=== PATIENT | female | born 1980 | race African-American/Black ===

== ENCOUNTER 2024-02-09 15:25 | Inpatient (IN) | payer MEDICAID ==
[~2024-02-09] VITALS: Ht 154.9 cm; Wt 76.7 kg
[~2024-02-09 15:25] MED LIST: AMOX1TAB16 MT; DOXY150T8 PO; SULF1TAB48 MT
[2024-02-09] MEDS: AMOXICILLIN/POTASSIUM CLAVULANATE 875/125MG TAB PO ONE (22:05)
[2024-02-09] MEDS: DOXYCYCLINE HYCLATE 100MG CAPSULE PO ONE (22:05)
[2024-02-10] MEDS: ACETAMINOPHEN 325MG TABLET PO ONE (00:15)
[2024-02-10 05:42] LABS: CHLORIDE 107 mEq/L (98-107); POTASSIUM 3.8 mEq/L (3.5-5.1); SODIUM 140 mEq/L (136-145)
[2024-02-10 05:43] LABS: CALCIUM 8.4 mg/dL (8.7-10.4); CARBON DIOXIDE 29 mEq/L (21-32)
[2024-02-10 05:48] LABS: CREATININE 0.6 mg/dL (0.6-1.0); GLUCOSE 82 mg/dL (70-105); UREA NITROGEN BLOOD 8 mg/dL (9-23)
[2024-02-10 06:52] LABS: EOSINOPHILS % 5.8 % (0.0-5.0); HEMOGLOBIN. 8.9 g/dL (12.0-16.0); MEAN CORPUSCULAR HEMOGLOBIN 22.8 pg (28.0-32.0); MEAN CORPUSCULAR HGB CONC 30.8 g/dL (31.0-37.0); MEAN CORPUSCULAR VOLUME 74.1 fL (81.0-99.0); MEAN PLATELET VOLUME 7.4 fl (7.4-10.4); MONOCYTES % 9.6 % (2.0-8.0); NEUTROPHILS % 65.6 % (40.0-76.0); PLATELET 404 x1000/uL (130-400); RED BLOOD CELL COUNT 3.91 mill/uL (4.2-5.4); RED CELL DISTRIBUTION WIDTH 28.4 % (11.6-14.6); WHITE BLOOD COUNT 5.5 x1000/uL (4.5-11.0)
[2024-02-10] MEDS: HYDRALAZINE 20MG/ML VIAL IV ONE (07:13)
[2024-02-10 07:19] LABS: DIFFERENTIAL COMMENT 1
[2024-02-10] MEDS ORDERED: ACETAMINOPHEN 325MG TABLET PO PRN (10:45)
[2024-02-10] MEDS ORDERED: DOCUSATE SODIUM 100MG CAPSULE PO PRN (10:45)
[2024-02-10] MEDS ORDERED: IPRATROPIUM/ALBUTEROL 0.5-3(2.5)MG/3ML NEB HHN PRN (10:45)
[2024-02-10] MEDS: ENOXAPARIN 40MG/0.4ML SYR SUBCUT SCH (11:15)
[2024-02-10 11:54] VITALS: BP 146/81; PULSE 94; RESP 17; TEMP 36.7516
[2024-02-10] MEDS ORDERED: CEFAZOLIN 2GM/100ML 100 ML IV SCH (12:00)
[2024-02-10] MEDS: FERROUS SULFATE 325MG TABLET PO SCH (13:05)
[2024-02-10] MEDS: ACETAMINOPHEN 325MG TABLET PO PRN (13:05)
[2024-02-10] MEDS: ONDANSETRON HCL 4MG/2ML INJ IV PRN (13:12)
[2024-02-10] MEDS: CEFAZOLIN 2000MG PREMIX 50 ML IV SCH (15:04)
[2024-02-10 20:00] VITALS: BP 137/76; PULSE 94; RESP 20; TEMP 37.11408; O2SAT 99
[2024-02-11] VITALS: BP 134/69; PULSE 81; RESP 20; TEMP 35.78064; O2SAT 100
[2024-02-11] MEDS: KETOROLAC 15MG/ML VIAL IV PRN (00:58)
[2024-02-11] MEDS: MELATONIN 3MG TABLET PO NR (00:58)
[2024-02-11 08:00] VITALS: BP 146/80; PULSE 85; RESP 19; TEMP 36.50292; O2SAT 99
[2024-02-11] MEDS: ASCORBIC ACID 500 MG TABLET PO SCH (09:30)
[2024-02-11] MEDS: FOLIC ACID 1MG TABLET PO SCH (09:30)
[2024-02-11] MEDS: PANTOPRAZOLE SODIUM 40 MG/VIAL IV SCH (09:31)
[2024-02-11 12:00] VITALS: BP 131/70; PULSE 80; RESP 19; TEMP 36.3918; O2SAT 99
[2024-02-11 16:00] VITALS: BP 126/64; PULSE 82; RESP 19; TEMP 36.50292; O2SAT 99
[2024-02-11 18:59] LABS: CHLORIDE 105 mEq/L (98-107); SODIUM 138 mEq/L (136-145)
[2024-02-11 19:00] LABS: CALCIUM 8.1 mg/dL (8.7-10.4); CARBON DIOXIDE 27 mEq/L (21-32)
[2024-02-11 19:05] LABS: CREATININE 0.6 mg/dL (0.6-1.0); GLUCOSE 102 mg/dL (70-105); UREA NITROGEN BLOOD 10 mg/dL (9-23)
[2024-02-11 19:15] LABS: EOSINOPHILS % 7.8 % (0.0-5.0); HEMATOCRIT. 29.2 % (36.0-48.0); LYMPHOCYTES % 17.2 % (20.0-50.0); MEAN CORPUSCULAR HGB CONC 30.8 g/dL (31.0-37.0); MEAN CORPUSCULAR VOLUME 74.9 fL (81.0-99.0); MEAN PLATELET VOLUME 7.6 fl (7.4-10.4); MONOCYTES % 7.4 % (2.0-8.0); NEUTROPHILS % 66.6 % (40.0-76.0); PLATELET 312 x1000/uL (130-400); RED CELL DISTRIBUTION WIDTH 27.5 % (11.6-14.6)
[2024-02-11 19:20] LABS: DIFFERENTIAL COMMENT 1
[2024-02-11 20:00] VITALS: BP 144/87; PULSE 95; RESP 20; TEMP 35.78064; O2SAT 99
[2024-02-12] VITALS: BP 152/92; PULSE 87; RESP 20; TEMP 36.50292; O2SAT 100
[2024-02-12 08:00] VITALS: BP 160/92; PULSE 101; RESP 19; TEMP 36.72516; O2SAT 95
[2024-02-12 12:00] VITALS: BP 152/94; PULSE 78; RESP 18; TEMP 36.61404; O2SAT 97
[2024-02-12] MEDS: AMLODIPINE 5MG TABLET PO SCH (12:45)
[2024-02-12 16:00] VITALS: BP 148/87; PULSE 90; RESP 19; TEMP 36.50292; O2SAT 98
[2024-02-12] MEDS: AMMONIUM LACTATE 12% LOTION 240ML TOP SCH (20:49)
[2024-02-13] VITALS: BP 152/90; PULSE 80; RESP 18; TEMP 36.72516; O2SAT 99
[2024-02-13 08:00] VITALS: BP_SYST 200
[2024-02-13 10:33] LABS: HEMATOCRIT 30.5 % (36.0-48.0); HEMOGLOBIN 9.4 g/dL (12.0-16.0); MEAN CORPUSCULAR HEMOGLOBIN 23.2 pg (28.0-32.0); MEAN CORPUSCULAR HGB CONC 30.8 g/dL (31.0-37.0); MEAN CORPUSCULAR VOLUME 75.2 fL (81.0-99.0); PLATELET 261 x1000/uL (130-400); RED BLOOD CELL COUNT 4.05 mill/uL (4.2-5.4); RED CELL DISTRIBUTION WIDTH 27.8 % (11.6-14.6); WHITE BLOOD COUNT 6.3 x1000/uL (4.5-11.0)
[2024-02-13 10:38] LABS: CHLORIDE 103 mEq/L (98-107); POTASSIUM 3.8 mEq/L (3.5-5.1); SODIUM 137 mEq/L (136-145)
[2024-02-13 10:39] LABS: CARBON DIOXIDE 28 mEq/L (21-32)
[2024-02-13 10:40] LABS: CALCIUM 8.3 mg/dL (8.7-10.4)
[2024-02-13 10:44] LABS: CREATININE 0.6 mg/dL (0.6-1.0); GLUCOSE 98 mg/dL (70-105)
[2024-02-13 10:45] LABS: UREA NITROGEN BLOOD 8 mg/dL (9-23)
[2024-02-13 12:00] VITALS: BP 138/79; PULSE 82; RESP 18; TEMP 36.72516; O2SAT 99
[2024-02-13 16:00] VITALS: BP 140/75; PULSE 76; RESP 18; TEMP 36.50292; O2SAT 100
[2024-02-14 08:00] VITALS: BP 152/89; PULSE 93; RESP 18; TEMP 36.61404; O2SAT 95
[2024-02-14] MEDS: FAMOTIDINE 20MG/2ML VIAL IV SCH (08:01)
[2024-02-14 12:00] VITALS: BP 150/89; PULSE 83; RESP 19; TEMP 36.72516; O2SAT 100
[2024-02-14 16:00] VITALS: BP 142/89; PULSE 87; RESP 19; TEMP 36.72516; O2SAT 100
[2024-02-14 20:00] VITALS: BP 133/78; PULSE 100; RESP 20; TEMP 36.33624; O2SAT 95
[2024-02-15 04:00] VITALS: BP 161/104; PULSE 89; RESP 20; TEMP 36.33624; O2SAT 99
[2024-02-15] MEDS: CLONIDINE 0.1MG TABLET PO PRN (06:10)
[2024-02-15 08:00] VITALS: BP 140/77; PULSE 84; RESP 17; TEMP 36.72516; O2SAT 97
[2024-02-15 12:00] VITALS: BP 152/94; PULSE 82; RESP 19; TEMP 36.50292; O2SAT 98
[2024-02-15 20:00] VITALS: BP 142/84; PULSE 86; RESP 20; TEMP 36.50292; O2SAT 99
[2024-02-16 12:00] VITALS: BP 138/78; PULSE 78; RESP 18; TEMP 36.61404; O2SAT 97
[2024-02-16 20:00] VITALS: BP 140/89; PULSE 85; RESP 20; TEMP 36.33624; O2SAT 100
[2024-02-17 04:00] VITALS: BP 149/81; PULSE 81; RESP 20; TEMP 36.44736; O2SAT 100
[2024-02-17 12:00] VITALS: BP 133/82; PULSE 85; RESP 19; TEMP 37.16964; O2SAT 100
[2024-02-17 16:00] VITALS: BP 135/79; PULSE 81; RESP 19; TEMP 37.16964; O2SAT 99
[2024-02-17 20:00] VITALS: BP 150/90; PULSE 78; RESP 18; TEMP 36.61404; O2SAT 97
[2024-02-18] VITALS: BP 144/82; PULSE 86; RESP 18; TEMP 37.16964; O2SAT 100
[2024-02-18 12:00] VITALS: BP 139/87; PULSE 89; RESP 19; TEMP 36.50292; O2SAT 99
[2024-02-18 16:00] VITALS: BP 121/83; PULSE 78; RESP 20; TEMP 36.3918; O2SAT 99
[2024-02-18 20:00] VITALS: BP 130/79; PULSE 86; RESP 18; TEMP 36.6696; O2SAT 100
[2024-02-19 08:00] VITALS: BP 151/96; PULSE 87; RESP 20; TEMP 36.28068; O2SAT 100
[2024-02-19 12:00] VITALS: BP 149/90; PULSE 93; RESP 18; TEMP 36.33624; O2SAT 99
[2024-02-19 16:00] VITALS: BP 142/88; PULSE 81; RESP 18; TEMP 36.22512; O2SAT 100
[2024-02-19 20:00] VITALS: BP 123/85; PULSE 86; RESP 20; TEMP 37.7808; O2SAT 95
[2024-02-20] VITALS: BP 139/85; PULSE 82; RESP 19; TEMP 36.50292; O2SAT 89
[2024-02-20 04:00] VITALS: BP 134/64; PULSE 78; RESP 18; TEMP 37.16964; O2SAT 96
[2024-02-20 12:54] VITALS: BP 146/94; PULSE 89; RESP 18; TEMP 37.05852; O2SAT 100
[2024-02-20 16:00] VITALS: BP 142/85; PULSE 90; RESP 19; TEMP 36.61404; O2SAT 100
[2024-02-20 20:00] VITALS: BP 133/74; PULSE 83; RESP 20; TEMP 36.3918; O2SAT 97
[2024-02-21 04:00] VITALS: BP 152/92; PULSE 85; RESP 20; TEMP 36.3918; O2SAT 100
[2024-02-21 12:00] VITALS: BP 129/91; PULSE 85; RESP 20; TEMP 36.3918; O2SAT 100
[2024-02-21 20:00] VITALS: BP 135/85; PULSE 85; RESP 18; TEMP 36.72516; O2SAT 100
[2024-02-21 21:55] LABS: BASOPHILS % 0.4 % (0.0-2.0); EOSINOPHILS % 2.9 % (0.0-5.0); HEMATOCRIT. 31.7 % (36.0-48.0); LYMPHOCYTES % 38.9 % (20.0-50.0); MEAN CORPUSCULAR HEMOGLOBIN 24.4 pg (28.0-32.0); MEAN CORPUSCULAR HGB CONC 31.4 g/dL (31.0-37.0); MEAN CORPUSCULAR VOLUME 77.6 fL (81.0-99.0); MEAN PLATELET VOLUME 8.8 fl (7.4-10.4); MONOCYTES % 10.7 % (2.0-8.0); NEUTROPHILS % 47.1 % (40.0-76.0); PLATELET 362 x1000/uL (130-400); RED BLOOD CELL COUNT 4.09 mill/uL (4.2-5.4); RED CELL DISTRIBUTION WIDTH 30.3 % (11.6-14.6); WHITE BLOOD COUNT 6.4 x1000/uL (4.5-11.0)
[2024-02-21 22:02] LABS: DIFFERENTIAL COMMENT 1
[2024-02-22] VITALS: BP 140/94; PULSE 82; RESP 18; TEMP 36.50292; O2SAT 82
[2024-02-22 04:00] VITALS: BP 138/86; PULSE 76; RESP 18; TEMP 37.00296; O2SAT 98
[2024-02-22 08:00] VITALS: BP 138/85; PULSE 80; RESP 17; TEMP 37.39188; O2SAT 100
[2024-02-22] MEDS: FAMOTIDINE 20MG TABLET PO SCH (09:02)
[2024-02-22 12:00] VITALS: BP 142/70; PULSE 75; RESP 18; TEMP 36.50292; O2SAT 100
[2024-02-22] MEDS: ONDANSETRON HCL 4MG TABLET PO PRN (13:32)
[2024-02-22 16:00] VITALS: BP 135/80; PULSE 70; RESP 19; TEMP 36.3918; O2SAT 100
[2024-02-23 08:00] VITALS: BP 161/88; PULSE 75; RESP 19; TEMP 36.3918; O2SAT 95
[2024-02-23 20:00] VITALS: BP 153/93; PULSE 88; RESP 20; TEMP 36.55848; O2SAT 100
[2024-02-24 08:00] VITALS: BP 158/88; PULSE 80; RESP 19; TEMP 36.3918; O2SAT 95
[2024-02-24] MEDS: CALAMINE LOTION 120ML TOP PRN (13:12)
[2024-02-24 16:00] VITALS: BP 159/105; PULSE 83; RESP 20; TEMP 36.50292; O2SAT 100
[2024-02-24 20:00] VITALS: BP 164/94; PULSE 90; RESP 19; TEMP 36.3918; O2SAT 100
[2024-02-25] VITALS: BP 130/82; PULSE 75; RESP 19; TEMP 36.3918; O2SAT 100
[2024-02-25 08:00] VITALS: BP 137/87; PULSE 73; RESP 20; TEMP 36.61404; O2SAT 95
[2024-02-25] MEDS: ENOXAPARIN 40MG/0.4ML SYR SUBCUT SCH (09:48)
[2024-02-25 12:00] VITALS: BP 135/85; PULSE 79; RESP 18; TEMP 36.22512; O2SAT 100
[2024-02-25 16:00] VITALS: BP 138/86; PULSE 80; RESP 18; TEMP 36.44736; O2SAT 100
[2024-02-25 16:17] VITALS: BP 138/86; PULSE 80; TEMP 97.6; O2SAT 100
== END 2024-02-25 18:45 | DRG 383 ==
LOC: ER 15:25 → 6EST 02-10 08:49 → EDBEDREQ 02-10 09:05 → EDBEDREQTM 02-10 09:05
PROVIDERS: ADMIT Hospitalist; ATTEND Hospitalist
DX: L03.116 Cellulitis of left lower limb (principal); E43 Unspecified severe protein-calorie malnutrition; D72.10 Eosinophilia, unspecified; I73.9 Peripheral vascular disease, unspecified; D50.9 Iron deficiency anemia, unspecified; D75.839 Thrombocytosis, unspecified; I10 Essential (primary) hypertension; F20.9 Schizophrenia, unspecified; Z79.899 Other long term (current) drug therapy; Z68.31 Body mass index [BMI] 31.0-31.9, adult
CPT/HCPCS: 36415; 80048; 83880; 85025; 85027; 97110; 97116; 97161; 97166; 97530; 97535; 99285; A4606; A4663; J0360; J0690; J1650; J1885; J2405; J2470; J3490; Q0162